=== PATIENT | male | born 1990 | race Caucasian/White ===

== ENCOUNTER 2018-05-13 17:13 | Emergency (ER) | payer BC ==
[~2018-05-13] VITALS: Ht 190.5 cm; Wt 65.8 kg
[2018-05-13 18:04] VITALS: BP_SYST 110
[2018-05-13] MEDS ORDERED: LIDOCAINE/EPI 1% 1:100000 20 ML VIAL INJ ONE (20:15)
[2018-05-13] MEDS ORDERED: BACITRACIN 1 GM OINT TP ONE (20:15)
[2018-05-13 21:12] VITALS: BP_SYST 116
== END 2018-05-13 21:12 | disposition home or self-care (01) ==
LOC: SED 17:13
DX: S71.112A Laceration without foreign body, left thigh, initial encounter (principal); R03.0 Elevated blood-pressure reading, without diagnosis of hypertension; Z88.1 Allergy status to other antibiotic agents; Z88.2 Allergy status to sulfonamides; Z88.8 Allergy status to other drugs, medicaments and biological substances; V19.3XXA Pedal cyclist (driver) (passenger) injured in unspecified nontraffic accident, initial encounter; Y93.89 Activity, other specified; Y92.410 Unspecified street and highway as the place of occurrence of the external cause; Y99.8 Other external cause status
CPT/HCPCS: 73564; 99283